=== PATIENT | male | born 1955 ===

== ENCOUNTER → 2017-09-12 17:38 | Outpatient (CLI) | payer OTHER | END | disposition home or self-care (01) | LOC: EDSEX 17:38 → LAB 17:38 | DX: R97.20 Elevated prostate specific antigen [PSA] (principal) ==

== ENCOUNTER 2019-02-06 08:01 | Outpatient (CLI) | payer OTHER | END 2019-02-06 08:05 | disposition home or self-care (01) | LOC: SONOGRAMA 08:01 | DX: R97.20 Elevated prostate specific antigen [PSA] (principal) ==

== ENCOUNTER 2019-04-22 08:30 | Inpatient (IN) | payer OTHER ==
[~2019-04-22] VITALS: Ht 165.1 cm; Wt 75.3 kg
== END 2019-04-28 13:22 | disposition home or self-care (01) | DRG 708 ==
LOC: O/R 04-26 06:10 → SURH 04-26 06:10
PROVIDERS: ADMIT Urology
PROC: 07TC0ZZ Resection of Pelvis Lymphatic, Open Approach (ICD-10-PCS; 2019-04-26)
PROC: 0VT00ZZ Resection of Prostate, Open Approach (ICD-10-PCS; principal; 2019-04-26 09:30)
DX: C61 Malignant neoplasm of prostate (principal)

== ENCOUNTER → 2019-05-30 09:40 | Outpatient (CLI) | payer OTHER | END | disposition home or self-care (01) | LOC: LAB 09:40 | DX: N39.0 Urinary tract infection, site not specified (principal) ==

== ENCOUNTER 2019-06-19 09:13 | Outpatient (CLI) | payer OTHER | END 2019-06-19 10:14 | disposition home or self-care (01) | LOC: LAB 09:13 | DX: N40.1 Benign prostatic hyperplasia with lower urinary tract symptoms (principal); R97.20 Elevated prostate specific antigen [PSA]; C61 Malignant neoplasm of prostate; R31.1 Benign essential microscopic hematuria; R80.8 Other proteinuria ==

== ENCOUNTER 2021-03-18 06:20 | Day surgery (SDC) | payer OTHER | END 2021-03-18 12:10 | disposition home or self-care (01) | LOC: CIR.AMB 06:20 | PROVIDERS: ATTEND Orthopaedic Surgery | DX: M75.121 Complete rotator cuff tear or rupture of right shoulder, not specified as traumatic (principal); M75.21 Bicipital tendinitis, right shoulder; Z20.822 Contact with and (suspected) exposure to COVID-19 ==